=== PATIENT | male | born 1960 | race Asian ===

== ENCOUNTER 2016-08-09 23:55 | Emergency (ER) | payer SELFPAY ==
[~2016-08-09] VITALS: Ht 177.8 cm; Wt 102.1 kg
[2016-08-10 03:25] VITALS: BP 170/111; TEMP 98.5
== END 2016-08-10 03:26 | disposition home or self-care (01) ==
LOC: ED 23:55
DX: S50.02XA Contusion of left elbow, initial encounter (principal); S40.012A Contusion of left shoulder, initial encounter; M70.22 Olecranon bursitis, left elbow; W11.XXXA Fall on and from ladder, initial encounter; Y92.098 Other place in other non-institutional residence as the place of occurrence of the external cause
CPT/HCPCS: 96374; 96375; 99284; J1170; J1885; J2175; J2550

== ENCOUNTER 2021-04-23 19:36 | Emergency (ER) | payer BC ==
[~2021-04-23] VITALS: Ht 177.8 cm; Wt 90.7 kg
[2021-04-23 22:15] VITALS: BP 146/89; TEMP 98
== END 2021-04-23 22:15 | disposition home or self-care (01) ==
LOC: ED 19:36
PROC: 2W3CX1Z Immobilization of Right Lower Arm using Splint (ICD-10-PCS; principal; 2021-04-23)
DX: S60.211A Contusion of right wrist, initial encounter (principal); M25.531 Pain in right wrist; W23.0XXA Caught, crushed, jammed, or pinched between moving objects, initial encounter; Y92.89 Other specified places as the place of occurrence of the external cause
CPT/HCPCS: 99283

== ENCOUNTER 2022-05-22 06:39 | Emergency (ER) | payer BC ==
[~2022-05-22] VITALS: Ht 177.8 cm; Wt 84.8 kg
[2022-05-22 06:50] VITALS: TEMP 98
[2022-05-22 08:20] VITALS: BP 168/82
== END 2022-05-22 08:12 | disposition still patient (30) ==
LOC: ED 06:39
DX: M54.59 Other low back pain (principal); G89.29 Other chronic pain; X50.1XXA Overexertion from prolonged static or awkward postures, initial encounter; Y92.89 Other specified places as the place of occurrence of the external cause
CPT/HCPCS: 96372; 99283; J1885; J2270; J2550

== ENCOUNTER 2023-01-07 16:26 | Emergency (ER) | payer BC ==
[~2023-01-07] VITALS: Ht 175.3 cm; Wt 77.1 kg
[2023-01-07 16:34] VITALS: TEMP 98.6
[2023-01-07 19:25] VITALS: BP 141/91
== END 2023-01-07 19:25 | disposition home or self-care (01) ==
LOC: ED 16:26
DX: M54.50 Low back pain, unspecified (principal); G89.29 Other chronic pain; M54.10 Radiculopathy, site unspecified
CPT/HCPCS: 96372; 99283; J1885; J2360

== ENCOUNTER 2023-07-26 16:09 | Emergency (ER) | payer BC ==
[~2023-07-26] VITALS: Ht 172.7 cm; Wt 84.8 kg
[~2023-07-26 16:09] MED LIST: EXCEDRIN MIGRAINE PO; FLONASE AL50 MCG/ACT NAS
[2023-07-26 16:55] LABS: PLATELET COUNT 328 K/uL (142-355)
[2023-07-26] MEDS ORDERED: SODIUM CHLORIDE 0.9% 1,000 ML IV ONE ×2 (18:30→18:32)
[2023-07-26] MEDS ORDERED: AMOXICILLIN 500 MG CAP PO ONE ×2 (18:38→19:05)
[2023-07-26] MEDS ORDERED: MECLIZINE25 MG PO (18:55)
[2023-07-26] MEDS ORDERED: AMOX500C85 PO (18:55)
[2023-07-26 19:15] VITALS: BP 127/69; TEMP 98.3
== END 2023-07-26 19:15 | disposition home or self-care (01) ==
LOC: ED 16:09
PROVIDERS: Family Medicine
DX: R42 Dizziness and giddiness (principal); H66.92 Otitis media, unspecified, left ear; E86.0 Dehydration
CPT/HCPCS: 36591; 80053; 85027; 96360; 99284